=== PATIENT | male | born 1965 | race Caucasian/White ===

== ENCOUNTER 2019-03-20 16:09 | Emergency (ER) | payer BC ==
[2019-03-20] MEDS ORDERED: Dicyclomine 20 MG TAB ONE (16:36)
== END 2019-03-20 16:40 | disposition home or self-care (01) ==
LOC: BURERS 16:09
DX: R10.11 Right upper quadrant pain (principal); I10 Essential (primary) hypertension; E11.9 Type 2 diabetes mellitus without complications; Z79.84 Long term (current) use of oral hypoglycemic drugs; Z79.899 Other long term (current) drug therapy
CPT/HCPCS: 99283